=== PATIENT | female | born 1930 | race Caucasian/White ===

== ENCOUNTER 2018-12-08 08:05 | Emergency (ER) | payer MEDICARE, OTHER ==
[~2018-12-08] VITALS: Ht 167.6 cm; Wt 68.2 kg
[2018-12-08] MEDS ORDERED: OXYMETAZOLINE NASAL SPRAY 0.05%,30ML ONE (08:29)
[2018-12-08] MEDS ORDERED: AMIODARONE 900 MG in DEXTROSE 5% 482 ML IV PRN (09:00)
[2018-12-08] MEDS ORDERED: FILTER 0.22 MICRON FOR AMIODARONE IV PRN (09:00)
[2018-12-08] MEDS ORDERED: AMIODARONE 50 MG/ML, 3ML IVPush ONE (09:00)
[2018-12-08] MEDS ORDERED: AMIODARONE IN D5W 100 ML IV ONE (09:00)
--- NOTE | 2018-12-08 09:15 | NUR ---
PT IN ROOM, NAD, NO NEEDS AT THIS TIME, WCTM.
[2018-12-08 10:10] VITALS: BP 159/76
== END 2018-12-08 10:12 | disposition home or self-care (01) ==
LOC: ED 09:15
DX: R04.0 Epistaxis (principal); I10 Essential (primary) hypertension
CPT/HCPCS: 99281; 99282

== ENCOUNTER 2019-10-30 23:22 | Emergency (ER) | payer MEDICARE, OTHER ==
[~2019-10-30] VITALS: Ht 167.6 cm; Wt 63.6 kg
--- NOTE | 2019-10-30 23:27 | NUR ---
LatoyaJaron states he can pick patient up if she is discharged.
[2019-10-30] MEDS ORDERED: SILVER NITRATE STICK TP ONE (23:28)
[2019-10-30] MEDS ORDERED: LOSA25TA25 PO (23:40)
--- NOTE | 2019-10-30 23:40 | NUR ---
DR. JAQUEZ AT . NOSEBLEED CONTROLLED AT THIS TIME. WILL CONTINUE TO MONITOR.
[2019-10-30 23:58] VITALS: BP 137/80
--- NOTE | 2019-10-30 23:59 | NUR ---
TIA KERR. DR. JAQUEZ AWARE. PT. TO BE D/C HOME.
--- NOTE | 2019-10-31 00:07 | NUR ---
SPOKE W/ PTS SON CLAUDIA, HE STATES HE WILL COME PICK PT UP.
--- NOTE | 2019-10-31 00:20 | NUR ---
Patient given discharge instructions and they have confirmed that they understand the instructions. Patient ambulatory with steady gait.
== END 2019-10-31 00:21 | disposition home or self-care (01) ==
LOC: ED 23:33
DX: R04.0 Epistaxis (principal); R51 Headache; I10 Essential (primary) hypertension
CPT/HCPCS: 30901; 99284